=== PATIENT | male | born 1990 | race African-American/Black ===

== ENCOUNTER → 2019-02-17 | Outpatient (CLI) | payer OTHER | END | disposition home or self-care (01) | LOC: LAB 09:18 | PROVIDERS: ATTEND Preventive Medicine Preventive Medicine/Occupational Environmental Medicine | DX: Z02.1 Encounter for pre-employment examination (principal) | CPT/HCPCS: 36415; 86706; 86735; 86762; 86765; 86787 ==

== ENCOUNTER → 2019-10-15 | Outpatient (CLI) | payer OTHER, BC | END | disposition home or self-care (01) | LOC: LAB 13:49 | PROVIDERS: ATTEND Nurse Practitioner Family | DX: Z20.828 Contact with and (suspected) exposure to other viral communicable diseases (principal) | CPT/HCPCS: C9803; U0003 ==

== ENCOUNTER → 2020-03-01 | Outpatient (CLI) | payer OTHER | END | disposition home or self-care (01) | LOC: LAB 09:45 | PROVIDERS: ATTEND Nurse Practitioner Family | DX: U07.1 COVID-19 (principal) | CPT/HCPCS: C9803; U0003 ==

== ENCOUNTER 2020-03-06 20:54 | Emergency (ER) | payer BC, OTHER ==
[~2020-03-06] VITALS: Ht 180.3 cm; Wt 128.8 kg
[2020-03-06 23:25] LABS: Basophils # (auto) 0 10 ^3/uL (0-0.2); Basophils % (auto) 0.3 % (0.0-2.0); Eosinophils # (auto) 0 10 ^3/uL (0-0.8); Hematocrit 46.3 % (41.0-53.0); Hemoglobin 15.7 g/dL (13.5-17.5); Lymphocytes # (auto) 1.3 10 ^3/uL (0.4-5.4); Lymphocytes % (auto) 22.3 % (10.0-50.0); Mean Corpuscular Volume 79.4 fL (80.0-100.0); Monocytes # (auto) 0.4 10 ^3/uL (0-1.3); Monocytes % (auto) 7.6 % (0.0-12.0); Neutrophils % (auto) 69.8 % (37.0-80.0); Nucleated Red Blood Cells % 0.1 %; Red Blood Cells 5.83 10^6/uL (4.5-5.90); Red Cell Distribution Width 13.1 % (11.8-14.3); White Blood Cell 5.8 10^3/uL (4.4-10.8)
[2020-03-06 23:37] LABS: Albumin 3.6 g/dL (3.4-5.0); BUN/Creatinine Ratio 10.2; Calcium 8.7 mg/dL (8.5-10.1)
[2020-03-06 23:39] LABS: Bilirubin, Total 0.8 mg/dL (0.2-1.0); Total Protein 8.3 g/dL (6.4-8.2)
[2020-03-07] MEDS ORDERED: ACETAMINOPHEN 325 MG TAB PO ONE (01:45)
[2020-03-07] MEDS ORDERED: ONDANSETRON ODT 4 MG TAB PO ONE (01:45)
[2020-03-07 01:52] VITALS: BP 119/68
[2020-03-09] MEDS ORDERED: ASCO500T11 PO (13:19)
[2020-03-09] MEDS ORDERED: ZINC220C8 PO (13:22)
[2020-03-09] MEDS ORDERED: CHOL20007 PO (13:22)
[2020-03-09] MEDS ORDERED: ASPI-498 PO (13:22)
[2020-03-09] MEDS ORDERED: AMLO-489 PO (13:22)
[2020-03-10] MEDS ORDERED: PENI500T2 PO (10:16)
[2020-03-11] MEDS ORDERED: ASPI81CH59 PO (17:25)
[2020-03-11] MEDS ORDERED: DOCU100C10 PO (17:25)
[2020-03-11] MEDS ORDERED: ALBU108A5 IN (17:25)
[2020-03-11] MEDS ORDERED: DEX4T PO (17:25)
[2020-03-11] MEDS ORDERED: ATO40T PO (17:25)
[2020-03-11] MEDS ORDERED: AML5T PO (17:25)
[2020-03-11] MEDS ORDERED: ASCO500T11 PO (17:25)
[2020-03-11] MEDS ORDERED: LEVO750T64 PO (17:25)
[2020-03-11] MEDS ORDERED: CHOL1CAP47 PO (17:25)
[2020-03-11] MEDS ORDERED: FAMO-12 PO (17:25)
[2020-03-11] MEDS ORDERED: APIX5TAB PO (17:25)
== END 2020-03-07 02:35 | disposition home or self-care (01) ==
LOC: EEVIPCON 20:54 → ER 20:55
DX: J06.9 Acute upper respiratory infection, unspecified (principal)
CPT/HCPCS: 36415; 71045; 80053; 83605; 85025; 93005; 99285; Q0162

== ENCOUNTER → 2020-03-07 | Outpatient (CLI) | payer BC ==
[~2020-03-07] MED LIST: ALBU108A5 IN; AML5T PO; AMLO-489 PO; APIX5TAB PO; ASCO500T11 PO; ASPI-498 PO; ASPI81CH59 PO; ATO40T PO; CHOL1CAP47 PO; CHOL20007 PO; DEX4T PO; DOCU100C10 PO; FAMO-12 PO; LEVO750T64 PO; PENI500T2 PO; ZINC220C8 PO
[2020-03-07 15:07] LABS: CRP High Sensitivity 3.83 mg/dL (< 0.3)
== END | disposition home or self-care (01) ==
LOC: LAB 14:11
PROVIDERS: ATTEND Nurse Practitioner Acute Care
DX: D89.839 Cytokine release syndrome, grade unspecified (principal); U07.1 COVID-19; R07.89 Other chest pain; R06.02 Shortness of breath
CPT/HCPCS: 36415; 82728; 83615; 85379; 86141

== ENCOUNTER 2020-03-09 10:58 | Inpatient (IN) | payer BC ==
[~2020-03-09] VITALS: Ht 180.3 cm; Wt 131.4 kg
[2020-03-09] MEDS ORDERED: REMDESIVIR PER PHARMACY 0 ML IV SCH (11:15)
[2020-03-09] MEDS ORDERED: NITROGLYCERIN 0.4 MG SL TAB SL PRN (11:15)
[2020-03-09] MEDS ORDERED: amLODIPine BESYLATE 5 MG TAB PO ONE (11:15)
[2020-03-09] MEDS ORDERED: MORPHINE SULF INJ 2 MG/ML SYRINGE 1ML IV PRN ×2 (11:15→14:15)
[2020-03-09] MEDS ORDERED: IOHEXOL 350 MG/ML 100ML IJ ONE (11:16)
[2020-03-09 11:42] LABS: Eosinophils # (auto) 0 10 ^3/uL (0-0.8); Eosinophils % (auto) 0.3 % (0.0-7.0); Lymphocytes # (auto) 1.6 10 ^3/uL (0.4-5.4); Lymphocytes % (auto) 37.8 % (10.0-50.0); Monocytes # (auto) 0.4 10 ^3/uL (0-1.3); Neutrophils # (auto) 2.1 10 ^3/uL (1.6-8.6)
[2020-03-09 11:44] LABS: Basophils # (auto) 0 10 ^3/uL (0-0.2); Basophils % (auto) 1.2 % (0.0-2.0); Hematocrit 45.7 % (41.0-53.0); Hemoglobin 15.7 g/dL (13.5-17.5); Mean Corpuscular Hemoglobin 26.8 pg (28.0-32.0); Mean Corpuscular Hgb Conc. 34.3 g/dL (32.0-36.0); Monocytes % (auto) 9.9 % (0.0-12.0); Neutrophils % (auto) 50.8 % (37.0-80.0); Nucleated Red Blood Cells % 0.3 %; Platelet Count (auto) 233 10^3/uL (140-450); Red Blood Cells 5.86 10^6/uL (4.5-5.90); Red Cell Distribution Width 13.1 % (11.8-14.3); White Blood Cell 4.2 10^3/uL (4.4-10.8)
[2020-03-09 12:06] LABS: Albumin 3.6 g/dL (3.4-5.0); Calcium 8.7 mg/dL (8.5-10.1); Potassium 4.2 mmol/L (3.5-5.1)
[2020-03-09 12:10] LABS: BUN/Creatinine Ratio 9.3; Bilirubin, Total 0.9 mg/dL (0.2-1.0)
[2020-03-09 12:42] VITALS: BP 138/88
[2020-03-09] MEDS ORDERED: ASCO500T11 PO ×2 (13:19)
[2020-03-09] MEDS ORDERED: CHOL20007 PO ×2 (13:22)
[2020-03-09] MEDS ORDERED: ASPI-498 PO ×2 (13:22)
[2020-03-09] MEDS ORDERED: AMLO-489 PO ×2 (13:22)
[2020-03-09] MEDS ORDERED: ZINC220C8 PO ×2 (13:22)
[2020-03-09] MEDS ORDERED: ONDANSETRON HCL 4 MG/2 ML VIAL IV PRN (14:15)
[2020-03-09] MEDS ORDERED: LACTULOSE 20Gm/30ML SOLN PO PRN (14:15)
[2020-03-09] MEDS ORDERED: ACETAMINOPHEN 500 MG TAB PO PRN (14:15)
[2020-03-09] MEDS ORDERED: TEMAZEPAM 15 MG CAP PO PRN (14:15)
[2020-03-09] MEDS ORDERED: traMADol HCL 50 MG TAB PO PRN (14:15)
[2020-03-09] MEDS ORDERED: REMDESIVIR 200 MG in NS 210ml LOADING DOSE ADULT IV ONE (15:00)
[2020-03-09] MEDS: ENOXAPARIN SOD 120 MG/0.8 ML SYRINGE SC SCH ×2 (15:52→22:41)
[2020-03-09] MEDS: levoFLOXacin 500MG 100 ML IV SCH (15:53)
[2020-03-09 16:00] VITALS: BP 116/68
[2020-03-09] MEDS: BUDESONIDE (INHALATION) 180 MCG IH IN SCH (20:12)
[2020-03-09] MEDS: ALBUTEROL SULF HFA 90MCG INH 200DOSE IN PRN (21:03)
[2020-03-09] MEDS ORDERED: ENOXAPARIN SOD 40 MG/0.4 ML SYRINGE SC SCH (22:00)
[2020-03-10] VITALS: BP 110/61
[2020-03-10] MEDS: ALBUTEROL SULF HFA 90MCG INH 200DOSE IN PRN ×2 (07:00→21:16)
[2020-03-10] MEDS: BUDESONIDE (INHALATION) 180 MCG IH IN SCH ×2 (07:00→21:16)
[2020-03-10] MEDS ORDERED: IVERMECTIN 3 MG TAB PO ONE (07:00)
[2020-03-10 07:20] LABS: Eosinophils # (auto) 0 10 ^3/uL (0-0.8); Lymphocytes # (auto) 1.1 10 ^3/uL (0.4-5.4); Lymphocytes % (auto) 17.8 % (10.0-50.0); Monocytes # (auto) 0.4 10 ^3/uL (0-1.3); Monocytes % (auto) 7.3 % (0.0-12.0); Neutrophils # (auto) 4.5 10 ^3/uL (1.6-8.6); White Blood Cell 6.1 10^3/uL (4.4-10.8)
[2020-03-10 07:23] LABS: Basophils # (auto) 0.1 10 ^3/uL (0-0.2); Basophils % (auto) 1.2 % (0.0-2.0); Eosinophils % (auto) 0.1 % (0.0-7.0); Hematocrit 42.1 % (41.0-53.0); Hemoglobin 14.7 g/dL (13.5-17.5); Mean Corpuscular Hgb Conc. 34.9 g/dL (32.0-36.0); Mean Corpuscular Volume 77.4 fL (80.0-100.0); Neutrophils % (auto) 73.6 % (37.0-80.0); Nucleated Red Blood Cells % 0.5 %; Platelet Count (auto) 263 10^3/uL (140-450); Red Blood Cells 5.43 10^6/uL (4.5-5.90); Red Cell Distribution Width 12.9 % (11.8-14.3)
[2020-03-10 07:39] LABS: Albumin 3.1 g/dL (3.4-5.0); Calcium 8.8 mg/dL (8.5-10.1); Potassium 4.3 mmol/L (3.5-5.1)
[2020-03-10 07:45] LABS: BUN/Creatinine Ratio 11.2; Bilirubin, Total 0.6 mg/dL (0.2-1.0); Total Protein 8.2 g/dL (6.4-8.2)
[2020-03-10 08:08] VITALS: BP 122/72
[2020-03-10] MEDS ORDERED: amLODIPine BESYLATE 5 MG TAB PO SCH (10:00)
[2020-03-10] MEDS ORDERED: PENI500T2 PO ×2 (10:16)
[2020-03-10] MEDS: DexAMETHasone SOD PHOS 10MG/1ML VIAL INJ IV SCH (11:12)
[2020-03-10] MEDS: ASCORBIC ACID 1,000 MG TAB PO SCH (11:13)
[2020-03-10] MEDS: ENOXAPARIN SOD 120 MG/0.8 ML SYRINGE SC SCH ×2 (11:13→11:28)
[2020-03-10] MEDS: CHOLECALCIFEROL (VITD3) 2,000 UNIT CAP/TAB PO SCH (11:16)
[2020-03-10] MEDS: levoFLOXacin 500MG 100 ML IV SCH (11:17)
[2020-03-10] MEDS: ZINC SULFATE 220mg CAP or TAB PO SCH (11:17)
[2020-03-10] MEDS: REMDESIVIR 100mg 100 MG in SODIUM CHL 0.9% 230 ML IV SCH (15:34)
[2020-03-10 16:00] VITALS: BP 111/61
[2020-03-10] MEDS: APIXABAN 5 MG TAB PO SCH (22:25)
[2020-03-11] VITALS: BP 105/59
[2020-03-11] MEDS: ALBUTEROL SULF HFA 90MCG INH 200DOSE IN PRN (06:58)
[2020-03-11] MEDS: BUDESONIDE (INHALATION) 180 MCG IH IN SCH (06:58)
[2020-03-11 07:33] LABS: Albumin 3.5 g/dL (3.4-5.0); BUN/Creatinine Ratio 12.7; Calcium 8.9 mg/dL (8.5-10.1); Potassium 3.9 mmol/L (3.5-5.1)
[2020-03-11 07:35] LABS: Bilirubin, Total 0.6 mg/dL (0.2-1.0); Total Protein 8.2 g/dL (6.4-8.2)
[2020-03-11 07:56] VITALS: BP 130/69
[2020-03-11] MEDS: ZINC SULFATE 220mg CAP or TAB PO SCH (09:50)
[2020-03-11] MEDS: ASCORBIC ACID 1,000 MG TAB PO SCH (09:50)
[2020-03-11] MEDS: APIXABAN 5 MG TAB PO SCH (09:50)
[2020-03-11] MEDS: DexAMETHasone SOD PHOS 10MG/1ML VIAL INJ IV SCH (09:51)
[2020-03-11] MEDS: CHOLECALCIFEROL (VITD3) 2,000 UNIT CAP/TAB PO SCH (09:51)
[2020-03-11] MEDS: levoFLOXacin 500MG 100 ML IV SCH (09:51)
[2020-03-11] MEDS: REMDESIVIR 100mg 100 MG in SODIUM CHL 0.9% 230 ML IV SCH (15:00)
[2020-03-11 16:08] VITALS: BP 125/66
[2020-03-11] MEDS ORDERED: DOCU100C10 PO ×2 (17:25)
[2020-03-11] MEDS ORDERED: CHOL1CAP47 PO ×2 (17:25)
[2020-03-11] MEDS ORDERED: APIX5TAB PO ×2 (17:25)
[2020-03-11] MEDS ORDERED: LEVO750T64 PO ×2 (17:25)
[2020-03-11] MEDS ORDERED: FAMO-12 PO ×2 (17:25)
[2020-03-11] MEDS ORDERED: ALBU108A5 IN ×2 (17:25)
[2020-03-11] MEDS ORDERED: DEX4T PO ×2 (17:25)
[2020-03-11] MEDS ORDERED: ASCO500T11 PO ×2 (17:25)
[2020-03-11] MEDS ORDERED: ATO40T PO ×2 (17:25)
[2020-03-11] MEDS ORDERED: AML5T PO ×2 (17:25)
[2020-03-11] MEDS ORDERED: ASPI81CH59 PO ×2 (17:25)
[2020-03-11 18:03] VITALS: BP 125/66
[2020-03-17] MEDS ORDERED: APIXABAN 5 MG TAB PO SCH (22:00)
== END 2020-03-11 18:50 | disposition home or self-care (01) | DRG 177 ==
LOC: ER 10:58 → TELE 10:59 → TELE-WESTW 12:05
PROVIDERS: ADMIT Internal Medicine; ATTEND Internal Medicine
PROC: XW033E5 Introduction of Remdesivir Anti-infective into Peripheral Vein, Percutaneous Approach, New Technology Group 5 (ICD-10-PCS; principal; 2020-03-09)
DX: U07.1 COVID-19 (principal); J12.82 Pneumonia due to coronavirus disease 2019; J96.01 Acute respiratory failure with hypoxia; D68.59 Other primary thrombophilia; E44.1 Mild protein-calorie malnutrition; Z68.41 Body mass index [BMI] 40.0-44.9, adult; E66.01 Morbid (severe) obesity due to excess calories; E78.5 Hyperlipidemia, unspecified; I10 Essential (primary) hypertension; Z88.1 Allergy status to other antibiotic agents; T36.8X5A Adverse effect of other systemic antibiotics, initial encounter; Y92.89 Other specified places as the place of occurrence of the external cause
CPT/HCPCS: 36415; 71045; 71275; 80053; 83880; 84484; 85025; 85652; 86141; 87070; 87205; 94640; 96365; 96367; C1729; G0378; J1100; J1956; J2405

== ENCOUNTER → 2020-03-09 | Outpatient (CLI) | payer BC ==
[~2020-03-09] VITALS: Ht 30.5 cm; Wt 126.6 kg
[~2020-03-09] MED LIST changes: +BAMLANIVIMAB 700MG/200ML 200 ML IV ONE; +SODIUM CHLORIDE 0.9% 1,000 ML IV ONE; +methylPREDNISolone SOD SUCC 125 MG/2 ML VL IV ONE
[2020-03-09 09:58] VITALS: BP 154/80
== END | disposition home or self-care (01) ==
LOC: ER 08:56
PROVIDERS: ATTEND Internal Medicine
DX: J84.89 Other specified interstitial pulmonary diseases (principal); R06.02 Shortness of breath; J98.4 Other disorders of lung
CPT/HCPCS: 71045

== ENCOUNTER → 2020-03-24 | Outpatient (CLI) | payer BC ==
[~2020-03-24] MED LIST changes: -AMLO-489 PO; -ASPI-498 PO; -BAMLANIVIMAB 700MG/200ML 200 ML IV ONE; -CHOL20007 PO; -PENI500T2 PO; -SODIUM CHLORIDE 0.9% 1,000 ML IV ONE; -ZINC220C8 PO; -methylPREDNISolone SOD SUCC 125 MG/2 ML VL IV ONE
== END | disposition home or self-care (01) ==
LOC: LAB 13:22
PROVIDERS: ATTEND Internal Medicine
DX: I26.99 Other pulmonary embolism without acute cor pulmonale (principal); R42 Dizziness and giddiness; Z86.16 Personal history of COVID-19
CPT/HCPCS: 36415; 85652

== ENCOUNTER → 2020-05-09 | Outpatient (CLI) | payer BC ==
[~2020-05-09] MED LIST changes: -AML5T PO
== END | disposition home or self-care (01) ==
LOC: XYW 16:27
PROVIDERS: ATTEND Internal Medicine
DX: I26.99 Other pulmonary embolism without acute cor pulmonale (principal); U07.1 COVID-19
CPT/HCPCS: 71275; Q9967

== ENCOUNTER → 2020-05-12 | Outpatient (CLI) | payer BC ==
[~2020-05-12] MED LIST changes: +IOPAMIDOL 76 % (ISOVUE-370) 100ML BTL IV ONE
[2020-05-12 10:08] VITALS: BP 138/91
[2020-05-12 10:39] VITALS: BP 149/90
== END | disposition home or self-care (01) ==
LOC: Rad HDHVI 10:07
PROVIDERS: ATTEND Internal Medicine Cardiovascular Disease
DX: R06.02 Shortness of breath (principal); R07.9 Chest pain, unspecified
CPT/HCPCS: 71275; G0463; Q9967